=== PATIENT | female | born 1960 ===

== ENCOUNTER → 2021-03-22 | Outpatient (CLI) | payer OTHER | END | disposition home or self-care (01) | LOC: LAB SHORT 17:45 → LAB 17:45 | DX: R35.0 Frequency of micturition (principal) | CPT/HCPCS: 87077; 87086; 87186 ==

== ENCOUNTER 2025-05-09 06:42 | Day surgery (SDC) | payer OTHER ==
[~2025-05-09] VITALS: Ht 162.6 cm; Wt 74.3 kg
[2025-05-09] VITALS (10 sets, daily range): BP systolic 128–137; BP diastolic 69–91
[~2025-05-09 06:42] MED LIST: Estrace Vagin42.5 GM VAG; FERSU300 PO; FISH OIL 1,0001 EA10 PO; MAGNESIUM PO; MULTI-VITAMIN1 EAC2 PO; Vitamin D1000 UNI1 PO
[2025-05-09] MEDS ORDERED: FentaNYL Citrate 50 MCG/ML 2 ML Injection ONE (07:00)
[2025-05-09] MEDS ORDERED: Midazolam HCl 1MG / ML 2ML Vial ONE (07:00)
[2025-05-09] MEDS ORDERED: Bupivacaine 0.5% W/EPI 1:200000 SDV 30 ML Vial ONE (07:12)
[2025-05-09] MEDS ORDERED: Estradiol Vag Cream 0.1 MG/G 42.5 GM Tube ONE (07:12)
--- NOTE | 2025-05-09 07:12 | NUR ---
Ambulatory in Day Surgery. Patient States Post-Procedure ride home has been arranged. Patient confirms NPO status and agrees with scheduled surgery. History, Chart, Medications and Allergies reviewed before start of procedure.
[2025-05-09] MEDS ORDERED: Albuterol 2.5 MG/3 ML VIAL INH PRN (08:00)
[2025-05-09] MEDS ORDERED: FentaNYL Citrate 50 MCG/ML 2 ML Injection IV PRN ×3 (08:05→08:40)
[2025-05-09] MEDS ORDERED: HYDROmorphone HCl/Pf 1MG SYR IV PRN ×2 (08:05)
[2025-05-09] MEDS ORDERED: Ondansetron HCl 2 MG / ML 2ML Vial IV PRN ×2 (08:05→08:40)
[2025-05-09] MEDS ORDERED: Metoclopramide HCl 5MG / ML 2ML Vial IV PRN (08:05)
[2025-05-09] MEDS ORDERED: HydrALAZINE HCl 20 MG / ML 1ML Vial IV PRN (08:05)
[2025-05-09] MEDS ORDERED: ePHEDrine Sulfate 50 MG/ML 1ML Injection IV PRN (08:05)
[2025-05-09] MEDS ORDERED: Glycopyrrolate 0.2 MG/ML 5ML VIAL ONE (08:13)
[2025-05-09] MEDS ORDERED: Ondansetron HCl 2 MG / ML 2ML Vial ONE (08:15)
[2025-05-09] MEDS ORDERED: Ketorolac Tromethamine 30mg Vial ONE (08:15)
[2025-05-09] MEDS ORDERED: Dexamethasone Sod Phos 10 MG/ML 1ML VIAL ONE (08:15)
[2025-05-09] MEDS ORDERED: HYDROcodone 5-APAP 325 TAB PO PRN (08:35)
[2025-05-09] MEDS ORDERED: FLU VACC TS2025-26(6MOS UP)/PF 45 MCG/0.5 ML SYRINGE IM SCH (08:35)
--- NOTE | 2025-05-09 09:22 | NUR ---
POST OP S/P ANTERIOR REPAIR. PT ARRIVAL TO UNIT A+OX4. DENIES PAIN, DENIES NAUSEA, REPORTS MILD PRESSURE TO VAGINA R/T TO VAGINAL PACKING/ALVARADO. ALVARADO WITH CLEAR YELLOW URINE. NO VAGINAL BLEEDING NOTED ON GSUTAVO PAD. POST OP VSS AND IN PROGRESS. OFFERING SIPS OF WATER AND CRACKERS. ORIENTED TO TREATMENT PLAN AND CALL LIGHT. CALL LIGHT WITHIN REACH.
[2025-05-09 11:06] LABS: BASOPHILS ABSOLUTE AUTO 0.04 K/mm3 (0.00-0.23); BASOPHILS PERCENT AUTO 1 % (0-2); EOSINOPHILS ABSOLUTE AUTO 0.01 K/mm3 (0.00-0.68); EOSINOPHILS PERCENT AUTO 0 % (0-6); Hematocrit 43.0 % (33.0-51.0); Hemoglobin 13.5 g/dL (11.5-16.0); IMMATURE GRAN ABSOLUTE AUTO 0.01 K/mm3 (0.00-0.10); IMMATURE GRAN PERCENT AUTO 0 % (0-1); LYMPHOCYTES ABSOLUTE AUTO 0.68 K/mm3 (0.84-5.20); LYMPHOCYTES PERCENT AUTO 11 % (21-46); MONOCYTES ABSOLUTE AUTO 0.09 K/mm3 (0.16-1.47); MONOCYTES PERCENT AUTO 2 % (4-13); Mean Corpuscular HGB Conc 31.4 g/dL (31.5-36.5); Mean Corpuscular Volume 92 fL (80-100); NEUTROPHILS ABSOLUTE AUTO 5.25 K/mm3 (1.96-9.15); NEUTROPHILS PERCENT AUTO 86 % (41-73); NRBC ABSOLUTE 0.00 K/mm3 (0.00-0.02); NRBC Auto 0.0 /100 WBC (0.0-0.2); Platelet Count 239 K/mm3 (150-400); RDW Coefficient Variation 12.7 % (11.7-14.2); RDW Standard Deviation 42.5 fL (35.1-46.3)
[2025-05-09] MEDS ORDERED: Ketorolac Tromethamine 30mg Vial IV SCH (12:00)
[2025-05-09] MEDS ORDERED: HYDR1TAB94 PO (12:20)
[2025-05-09] MEDS ORDERED: IBUP800 PO (12:22)
--- NOTE | 2025-05-09 13:29 | NUR ---
DISCHARGE NOTE: PT VOIDED 250ML OF URINE, ABLE TO AMBUALTE TO BATHROOM INDEPENDENTLY. TOLERATING FLUIDS AND REGULAR DIET. DENIES PAIN. VAGINAL PACKING REMOVED. RN PROVIDED DISCHARGE EDUCATION, CALL TO MD OFFICE, SCHEDULE TWO WEEK FOLLOW UP, S/SX TO MONITOR FOR, AND POST OP HOMECARE INSTRUCTIONS. RN GAVE PT A HARDSCRIPT, COPY PLACED IN CHART. PT'S FRIEND DONG IS DRIVING HER HOME IV REMOVED BY STACY ARCHULETA. PT AMBULATED INDEPENDENLTY TO PRIVATE CAR, DRIVEN BY DONG, ALL PERSONAL BELONGINGS RETURNED. RN OFFERED WHEELCHAIR, PT DECLINED.
== END 2025-05-09 13:22 | disposition home or self-care (01) ==
LOC: ORSCMMR 06:42 → ORD 07:30 → SURS 09:01 → ORSCMMR 13:22 → ORD 13:30
PROVIDERS: Obstetrics & Gynecology
PROC: 0JQC0ZZ Repair Pelvic Region Subcutaneous Tissue and Fascia, Open Approach (ICD-10-PCS; principal; 2025-05-09 07:30)
DX: N81.11 Cystocele, midline (principal); N95.1 Menopausal and female climacteric states
CPT/HCPCS: 36415; 85025; A9270; J1100; J1885; J2250; J2405; J2704; J3010; J7120